=== PATIENT | male | born 1975 | race Caucasian/White ===

== ENCOUNTER 2020-11-10 10:42 | Emergency (ER) | payer OTHER ==
[~2020-11-10] VITALS: Ht 175.3 cm; Wt 90.0 kg
[2020-11-10 10:55] VITALS: BP 166/82
[2020-11-10] MEDS ORDERED: ibuprofen tablet 400 MG TABLET PO ONE (11:55)
[2020-11-10] MEDS ORDERED: IBUP-1984 PO (12:00)
== END 2020-11-10 12:55 | disposition home or self-care (01) ==
LOC: ER 10:43
DX: S93.601A Unspecified sprain of right foot, initial encounter (principal); W22.8XXA Striking against or struck by other objects, initial encounter; Y93.89 Activity, other specified; Y92.89 Other specified places as the place of occurrence of the external cause; Y99.8 Other external cause status
CPT/HCPCS: 73630; 99283